=== PATIENT | female | born 1970 | race American Indian/Alaskan Native ===

== ENCOUNTER 2020-07-04 14:23 | Outpatient (CLI) | payer OTHER ==
--- NOTE | 2020-07-16 07:53 | Mammography Report ---
ATTEMPTED RIGHT BREAST STEREOTACTIC GUIDED BIOPSY INDICATION: Persistent density on right outside mammography COMPARISON: Outside mammograms 03/22/2020, 05/23/2020 PROCEDURE: Procedure was discussed at length in advance with the patient including possible risks and benefits. Patient is not on anticoagulant therapy and does not report pertinent allergies. Timeout w as performed. Patient was placed on the table and multiple attempts were made to target the previousl y seen density in the far posterior outer right breast. Despite many attempts, no clear target was se en to reasonably permit biopsy. This was discussed with the patient including the possibility of excisional biopsy with wire localiza tion. Because of the difficulty in visualizing this area today with the stereotactic unit and the lucio nging appearance on outside mammography with questionable correlation between lateral and craniocauda l projections, additional mammographic imaging was obtained to determine if this lesion was indeed wo rrisome as well as planning for possible wire localization if so. DIGITAL RIGHT DIAGNOSTIC MAMMOGRAM WITH CAD, WITH TOMOSYNTHESIS 07/04/2020 INDICATION: Possible right lesion as above TECHNIQUE: Digital right mammographic imaging was performed including field tomosynthesis. Spot comp ression views were obtained. This examination was interpreted with the benefit of Computer-aided Detection analysis. COMPARISON: As above Breast Density: The breasts are heterogeneously dense, which may obscure small masses. FINDINGS: The the density of concern on outside mammography is no longer apparent on 3 view full fiel d mammography with tomographic imaging as well as standard spot views. No suspicious lesion is seen. IMPRESSION: The density of concern on outside studies could not be targeted stereotactically and regina tionally is no longer apparent on extensive diagnostic mammography following that attempt as above. I have a report that ultrasound was also negative. I do not believe there is a significant lesion. Follow up recommendation: As a conservative precaution I would suggest 6 month follow-up right mammog isreal. I discussed this with the patient and she was agreeable with that course of action. BI-RADS Category 1: Negative. A "normal" or negative report should not discourage follow up or biopsy of a clinically significant f inding. A written summary of these findings will be mailed to the patient. The patient will be entered into a mammography reporting system which will generate a reminder letter for the patient's next appointmen t at the appropriate interval. According to the [employer], yearly mammograms are recommended starting at age 40 and continuing as long as a woman is in good health. Breast MRI is recommended for women with an javier roximately 20-25% or greater lifetime risk of breast cancer, including women with a strong family his tory of breast or ovarian cancer and women who have been treated for Hodgkin's disease. Signer Name: Thai Boyer MD Signed: 07/04/2020 5:13 PM Workstation Name: [id number]
== END 2020-07-04 14:24 | disposition home or self-care (01) ==
LOC: SPVWC 14:23
PROVIDERS: ATTEND Surgery
DX: R92.8 Other abnormal and inconclusive findings on diagnostic imaging of breast (principal)
CPT/HCPCS: 77065; G0279

== ENCOUNTER 2020-11-08 09:24 | Outpatient (CLI) | payer OTHER ==
--- NOTE | 2020-11-08 10:32 | Mammography Report ---
DIGITAL DIAGNOSTIC MAMMOGRAM WITH CAD CONVENTIONAL, 11/08/2020 CLINICAL INFORMATION / INDICATION: Short-term follow-up. Prior abnormal mammogram. TECHNIQUE: Digital right mammographic imaging was performed. This examination was interpreted with the benefit of Computer-aided Detection analysis. COMPARISON: 07/04/20. FINDINGS: Breast Density: The breasts are heterogeneously dense, which may obscure small masses. No dominant mass, suspicious calcifications or architectural distortion in the right breast. IMPRESSION: No mammographic evidence of malignancy. Follow up recommendation: Back to schedule. BI-RADS Category 1: Negative. A "normal" or negative report should not discourage follow up or biopsy of a clinically significant f inding. A written summary of these findings will be mailed to the patient. The patient will be entered into a mammography reporting system which will generate a reminder letter for the patient's next appointmen t at the appropriate interval. According to the [employer], yearly mammograms are recommended starting at age 40 and continuing as long as a woman is in good health. Breast MRI is recommended for women with an javier roximately 20-25% or greater lifetime risk of breast cancer, including women with a strong family his tory of breast or ovarian cancer and women who have been treated for Hodgkin's disease. Signer Name: Alexandre Piña MD Signed: 11/08/2020 10:27 AM Workstation Name: [id number]
== END 2020-11-08 09:25 | disposition home or self-care (01) ==
LOC: SPVWC 09:24
PROVIDERS: ATTEND Surgery
DX: R92.2 Inconclusive mammogram (principal)

== ENCOUNTER 2021-03-28 08:10 | Outpatient (CLI) | payer OTHER ==
--- NOTE | 2021-03-28 09:52 | Mammography Report ---
DIGITAL SCREENING MAMMOGRAM WITH TOMOSYNTHESIS WITH CAD, 03/28/2021 CLINICAL INFORMATION / INDICATION: Routine Screening Mammography. TECHNIQUE: Digital bilateral 2D and 3D mammography with tomosynthesis was obtained in the craniocaud al and mediolateral oblique projections. Computer-Aided Detection (CAD) analysis was used for interp retation of this study. COMPARISON: Prior mammograms 03/22/2020 and 06/15/2019 FINDINGS: Breast Density: The breasts are heterogeneously dense, which may obscure small masses. No dominant mass, suspicious calcifications, or architectural distortion in either breast. There has been no significant change compared with the prior examinations. IMPRESSION: No mammographic evidence of malignancy. Follow up recommendation: Routine yearly BI-RADS Category 1: Negative. A "normal" or negative report should not discourage follow up or biopsy of a clinically significant f inding. A written summary of these findings will be mailed to the patient. The patient will be entered into a mammography reporting system which will generate a reminder letter for the patient's next appointmen t at the appropriate interval. The [employer] recommends yearly mammograms starting at age 40 and continuing as l ariane as a woman is in good health. Breast MRI is recommended for women with an approximate 20-25% or greater lifetime risk of breast cancer, including women with a strong family history of breast or ova albin cancer or who have been treated for Hodgkin's disease. Signer Name: Shellie Salomon MD Signed: 03/28/2021 9:48 AM Workstation Name: [id number]
== END 2021-03-28 08:11 | disposition home or self-care (01) ==
LOC: SPVWC 08:10
PROVIDERS: ATTEND Surgery
DX: Z12.31 Encounter for screening mammogram for malignant neoplasm of breast (principal); N64.89 Other specified disorders of breast
CPT/HCPCS: 77063; 77067

== ENCOUNTER 2021-04-17 14:13 | Outpatient (CLI) | payer OTHER ==
--- NOTE | 2021-04-17 17:54 | Ultrasound Report ---
ULTRASOUND BREAST RIGHT COMPLETE, 04/17/2021 CLINICAL INFORMATION / INDICATION: Right breast pain. TECHNIQUE: Complete sonographic evaluation of all 4 quadrants and retroareolar region was performed. COMPARISON: Recent mammogram 03/28/2021 FINDINGS: Sonographic evaluation of the right breast and right axilla is unremarkable. There is no evidence for solid mass, cyst, or suspicious shadowing no abnormal lymph nodes are present in the right axilla. IMPRESSION: No sonographic evidence of malignancy. No sonographic correlate for the complaint of pain . Clinical correlation is recommended. Follow up recommendation: Routine yearly BI-RADS Category 2: Benign. A normal or "negative" report should not preclude biopsy or follow-up of a clinically suspicious find ing. Signer Name: Genesis Pablo MD Signed: 04/17/2021 5:50 PM Workstation Name: [email or web address]
== END 2021-04-17 14:14 | disposition home or self-care (01) ==
LOC: SPVWC 14:13
PROVIDERS: ATTEND Surgery
DX: N64.4 Mastodynia (principal); Z80.3 Family history of malignant neoplasm of breast